=== PATIENT | male | born 1990 | race Caucasian/White ===

== ENCOUNTER 2017-06-06 06:57 | Day surgery (SDC) | payer OTHER ==
[~2017-06-06] VITALS: Ht 167.6 cm; Wt 81.7 kg
[2017-06-06] MEDS ORDERED: LR 1,000 ML IV ONE (07:15)
[2017-06-06 07:24] LABS: MEAN CORPUSCULAR HEMOGLOBIN 30.1 pg (27.0-33.0); PLATELET COUNT, AUTOMATED 277 10^3/uL (150-450); RED CELL DISTRIBUTION WIDTH 12.3 % (11.5-14.5); WHITE BLOOD COUNT 9.9 10^3/uL (4.0-10.0)
[2017-06-06] MEDS ORDERED: BUPIVACAINE/EPIN 0.25% 30 ML VIAL As Ordered ONE (07:58)
[2017-06-06] MEDS ORDERED: fentaNYL 250 MCG/5 ML INJECTION (J3010) As Ordered ONE (09:36)
[2017-06-06] MEDS ORDERED: ROCURONIUM BROMIDE 50 MG/5 ML VIAL/SYRINGE As Ordered ONE ×2 (09:36→09:51)
[2017-06-06] MEDS ORDERED: PROPOFOL 200 MG/20 ML VIAL As Ordered ONE (09:36)
[2017-06-06] MEDS ORDERED: MIDAZOLAM INJ 2 MG/2 ML VIAL (J2250) As Ordered ONE (09:36)
[2017-06-06] MEDS ORDERED: dexameTHASONE 4 MG/ML 1ML VIAL (J1100) As Ordered ONE ×2 (09:37→09:42)
[2017-06-06] MEDS ORDERED: LIDOCAINE 2% INJ 100 MG/5 ML SDV (FOR ANES.) As Ordered ONE (09:41)
[2017-06-06] MEDS ORDERED: KETOROLAC 60 MG/2 ML VIAL (J1885) As Ordered ONE (09:42)
[2017-06-06] MEDS ORDERED: HYDROmorphone HCL 2 MG/ML 1ML VIAL (J1170) As Ordered ONE (10:13)
[2017-06-06] MEDS ORDERED: NEOSTIGMINE 10 MG/10 ML VIAL (J2710) As Ordered ONE (10:15)
[2017-06-06] MEDS ORDERED: GLYCOPYRROLATE INJ 0.2 MG/ML 2 ML VIAL As Ordered ONE ×2 (10:15→10:42)
[2017-06-06] MEDS ORDERED: fentaNYL 100 MCG/2 ML INJECTION (J3010) IV PRN (11:30)
[2017-06-06] MEDS ORDERED: KETOROLAC 30 MG/ML VIAL (J1885) IV PRN (11:30)
[2017-06-06] MEDS ORDERED: ONDANSETRON 4MG/2ML VIAL (J2405) IV PRN (11:30)
[2017-06-06] MEDS ORDERED: LR 1,000 ML IV SCH (11:30)
[2017-06-06] MEDS ORDERED: NORCO, ANEXSIA 5/325MG TABLET (HYDROcodone/ACETAMINOPHEN) PO PRN (11:30)
[2017-06-06] MEDS ORDERED: MEPERIDINE INJ 25 MG/ML VIAL (J2175) IV PRN (11:30)
[2017-06-06] MEDS: PERCOCET 5MG/325MG TAB PO PRN ×2 (11:38→12:02)
--- NOTE | 2017-06-06 14:07 | RO ---
DATE OF PROCEDURE: 06/06/2017 PREOPERATIVE DIAGNOSIS: Recurrent right inguinal hernia. POSTOPERATIVE DIAGNOSIS: Recurrent right inguinal hernia. PROCEDURE: Robotic-assisted recurrent right inguinal hernia repair with mesh. SURGEON: Vidal Miranda DO BROILER CHEF OR COOK: LUCIO Stern ANESTHESIA: General. ESTIMATED BLOOD LOSS: 5 mL. COMPLICATIONS: None. INDICATION FOR PROCEDURE: The patient is a 27-year-old male with a history of a right inguinal hernia repair done open about 4 years ago. He presented with a recurrent hernia. Recommendation was to proceed with a robotic repair this time, possible open. Risks, benefits of the procedure not limited too, but including bleeding, infection, hernia formation, hernia recurrence, damage to surrounding structure, possible need for further surgery were discussed in detail with the patient. Informed consent was obtained and procedure was planned. DESCRIPTION OF PROCEDURE: The patient brought to operating room 7. After sufficient sedation, the abdomen was sterilely prepped and draped, and a De La Fuente catheter was placed. Next, a time out was done to confirm proper patient and proper procedure. Next, an 8 mm supraumbilical incision was made. The abdomen was then entered using a 5 mm OptiView port. Once the abdomen was entered, it was insufflated to 15 mmHg. Two 8 mm robotic ports were placed in the right and left abdomen. A 5 mm OptiView port was then replaced with an 8 mm robotic camera port. The robot was then docked to the ports. Next, from the console, the peritoneum was incised in a curvilinear fashion in the right lower quadrant. There was a large indirect hernia identified. This was carefully dissected free circumferentially and the hernia sac was dissected completely medially, laterally and posteriorly. After doing so, there was a lot of scar tissue from his previous hernia repair that was adherent to the blood vessels. These were carefully dissected free with no obvious injury identified. Once the preperitoneal space was completely dissected and the hernia was completely reduced, a large 3DMax mesh was placed in the preperitoneal space. The mesh was sutured to the pubic symphysis with a #2-0 Vicryl suture. Following that, the peritoneum was closed over top of the mesh using a running V-Loc suture. Once this was all completed, the abdomen was desufflated. Skin incisions were closed with #4-0 Vicryl subcuticular sutures. The abdomen was cleaned and dried. Steri-Strips, 4x4 and tape were applied thus ending procedure.
[2017-06-06 14:20] VITALS: BP 110/57
[2017-06-07] MEDS ORDERED: HYDR-3713 PO (19:28)
[2017-06-07] MEDS ORDERED: COLA100C5 PO (19:28)
== END 2017-06-06 14:50 | disposition home or self-care (01) ==
LOC: M SDC 06:57
PROVIDERS: ATTEND Surgery
DX: K40.91 Unilateral inguinal hernia, without obstruction or gangrene, recurrent (principal)
CPT/HCPCS: 36415; 49651; 85027; C1781; J0690; J1100; J1170; J1885; J2250; J2710; J3010

== ENCOUNTER 2017-06-07 19:20 | Emergency (ER) | payer OTHER ==
[~2017-06-07] VITALS: Ht 167.6 cm; Wt 81.8 kg
[2017-06-07] MEDS ORDERED: HYDR-3713 PO (19:28)
[2017-06-07] MEDS ORDERED: COLA100C5 PO (19:28)
[2017-06-07 20:50] VITALS: BP 119/70
== END 2017-06-07 20:54 | disposition home or self-care (01) ==
LOC: M ED 19:20
DX: Z48.01 Encounter for change or removal of surgical wound dressing (principal)

== ENCOUNTER 2019-04-05 21:24 | Emergency (ER) | payer OTHER ==
[~2019-04-05] VITALS: Ht 167.6 cm; Wt 80.9 kg
[2019-04-05 21:24] VITALS: BP 134/68
[~2019-04-05 21:24] MED LIST: COLA100C5 PO; HYDR-3713 PO
[2019-04-05] MEDS ORDERED: IBUPROFEN 600 MG TAB PO ONE (22:00)
[2019-04-05] MEDS ORDERED: IBUP-1022 PO (22:20)
--- NOTE | 2019-04-06 01:18 | REP ---
Clinical: Trauma. Injury. Technique: AP, lateral, bilateral oblique views of the right ankle. Findings: Lateral swelling consist with inversion injury. No acute fracture or dislocation. Ankle mortise intact. No subcutaneous emphysema or radiodense foreign body. Impression: Lateral swelling consist with inversion injury. Electronically Signed by Jose Adams MD 04/06/2019 01:10 A
== END 2019-04-05 22:31 | disposition home or self-care (01) ==
LOC: M ED 21:24
DX: S90.01XA Contusion of right ankle, initial encounter (principal); X58.XXXA Exposure to other specified factors, initial encounter; Y92.69 Other specified industrial and construction area as the place of occurrence of the external cause

== ENCOUNTER → 2019-06-04 | Outpatient (CLI) | payer OTHER ==
[~2019-06-04] MED LIST changes: +IBUP-1022 PO
--- NOTE | 2019-06-04 13:50 | REP ---
BILATERAL INGUINAL ULTRASOUND: Real-time sonographic evaluation of bilateral inguinal region is performed. Sonographically, there appears to be mesenteric fat extending into the right inguinal canal mid aspect. This is nonreducible. No bowel is seen in this region. Left inguinal canal appears unremarkable with no evidence of mesenteric fat. Also no bowel is seen in the left inguinal canal. IMPRESSION: Sonographically I suspect that there is mesenteric fat extending to the right inguinal canal mid aspect. This is nonreducible. No bowel is seen. No left inguinal hernia. Electronically Signed by Vidal Mccormick MD 06/06/2019 10:20 A
== END ==
LOC: M RAD 10:31
PROVIDERS: ATTEND Surgery
DX: K40.91 Unilateral inguinal hernia, without obstruction or gangrene, recurrent (principal)

== ENCOUNTER → 2019-07-28 | Outpatient (CLI) | payer OTHER ==
[~2019-07-28] MED LIST changes: +AMOX875T PO; +BENZ200C70 PO
== END ==
LOC: MERGE 16:45 → M LRY 16:45
PROVIDERS: ATTEND Physician Assistant
DX: J02.9 Acute pharyngitis, unspecified (principal); Z53.9 Procedure and treatment not carried out, unspecified reason

== ENCOUNTER → 2019-07-30 | Day surgery (SDC) | payer OTHER ==
[~2019-07-30] VITALS: Ht 167.6 cm; Wt 85.2 kg
[~2019-07-30] MED LIST changes: +LIDOCAINE 1% MDV 20ML VIAL SQ PRN; +LR 1,000 ML IV ONE; +ceFAZolin SOD 2 GM in IV 1 EA IV ONE
[2019-07-30 08:44] VITALS: BP 118/77
== END | disposition home or self-care (01) ==
LOC: M SDC 08:26
PROVIDERS: ATTEND Surgery
DX: K40.31 Unilateral inguinal hernia, with obstruction, without gangrene, recurrent (principal); Z53.09 Procedure and treatment not carried out because of other contraindication; R05 Cough

== ENCOUNTER 2019-08-24 06:12 | Day surgery (SDC) | payer OTHER ==
[~2019-08-24] VITALS: Ht 167.6 cm; Wt 85.2 kg
[2019-08-24] MEDS ORDERED: BUPIVACAINE/EPIN 0.25% 30 ML VIAL As Ordered ONE (07:16)
[2019-08-24] MEDS: PERCOCET 5MG/325MG TAB PO PRN ×2 (09:58→10:30)
[2019-08-24] MEDS ORDERED: NORCO, ANEXSIA 5/325MG TABLET (HYDROcodone/ACETAMINOPHEN) PO PRN (10:00)
[2019-08-24] MEDS ORDERED: LR 1,000 ML IV SCH (10:15)
[2019-08-24] MEDS ORDERED: ONDANSETRON 4MG/2ML VIAL (J2405) IV PRN (10:15)
[2019-08-24] MEDS ORDERED: METOCLOPRAMIDE INJ 10MG/2ML VIAL (J2765) IV PRN (10:15)
[2019-08-24] MEDS ORDERED: fentaNYL 100 MCG/2 ML INJECTION (J3010) IV PRN (10:15)
--- NOTE | 2019-08-24 10:55 | RO ---
DATE OF PROCEDURE: 08/24/2019 PREOPERATIVE DIAGNOSIS: Recurrent incarcerated right inguinal hernia. POSTOPERATIVE DIAGNOSIS: Recurrent incarcerated right inguinal hernia. PROCEDURE: Robotic repair of recurrent incarcerated right inguinal hernia. SURGEON: Dr. Miranda SUPERVISOR [employer] REPAIR: Nay Greenwood NP ANESTHESIA: General. ESTIMATED BLOOD LOSS: 5 mL. COMPLICATIONS: None. INDICATIONS FOR PROCEDURE: The patient 29-year-old male with a recurrent incarcerated right inguinal hernia repair. Recommendation is to proceed with robotic repair. Risks and benefits to the procedure not limited but including bleeding, infection, hernia recurrence, damage to surrounding structure, need for further surgery were discussed in detail with the patient, informed consent was obtained, procedure was planned. DESCRIPTION OF PROCEDURE: The patient was brought back to operating room 7. After sufficient sedation, the abdomen was sterilely prepped and draped. Next, time-out was done to confirm proper patient and proper procedure. Following that, an 8 mm incision was made in left lower quadrant, Veress needle inserted and the abdomen was insufflated to 15 mmHg. Next, Veress needle was removed and an 8 mm port was placed supraumbilically in the midline. Once the camera was inserted, the abdomen was examined, two more 8 mm ports were placed on the left and right midabdomen. Next, in the right groin, there were omental adhesions overlying the previous mesh. These were all dissected down gently using a combination of blunt and sharp dissection. Once that was completed, the mesh appeared to be completely intact. I started to dissect medially around the mesh heading down towards pubic symphysis. It appeared that the inferior-superior portion of the mesh had folded backwards on itself, also on the inferior medial portion of the mesh there appeared to be some preperitoneal fat that was sticking underneath down towards the femoral artery. This fat was dissected free and removed posteriorly and inferiorly. Once all that was completed, the medial portion of mesh was freed up for the pubic symphysis and dissected laterally to free up the entire area in between the pubic symphysis and the inferior epigastric. Once that was completed, a 6 cm round piece of Prograf mesh was placed into the preperitoneal space overlying the pubic symphysis. The previous 3-D Max mesh was then laid back over top of it. The peritoneum was then closed over top of this entire area with a 2-0 V-Loc suture. Once this was completed, the abdomen was desufflated. Skin incisions were closed with 4-0 Vicryl subcuticular sutures. The abdomen was cleaned and dried. Steri-Strips, 4x4 and tape were applied, thus ending procedure.
[2019-08-24 11:50] VITALS: BP 115/56
== END 2019-08-24 12:00 | disposition home or self-care (01) ==
LOC: M SDC 06:12
PROVIDERS: ATTEND Surgery
DX: K40.31 Unilateral inguinal hernia, with obstruction, without gangrene, recurrent (principal)
CPT/HCPCS: 49651; C1781; J0131; J0690; J1100; J1885; J2250; J2405; J2710; J2765; J3010